=== PATIENT | female | born 1985 | race Caucasian/White ===

== ENCOUNTER 2017-08-06 08:32 | Inpatient (IN) | payer OTHER ==
[2017-08-06 09:12] LABS: AMNISURE (ROM) POSITIVE (NEGATIVE)
[2017-08-06 09:42] LABS: ABSOLUTE BASOPHILS # (AUTO) 0.1 10^3/uL (0.0-0.2); ABSOLUTE EOSINOPHILS # (AUTO) 0.1 10^3/uL (0.0-0.6); ABSOLUTE LYMPHOCYTES (AUTO) 1.8 10^3/uL (0.5-4.7); ABSOLUTE NEUT (AUTO) 8.6 10^3/uL (1.7-8.2); BASOPHILS % (AUTO) 0.5 % (0-2); EOSINOPHILS % (AUTO) 0.5 % (0-6); HEMATOCRIT 35.2 % (36.0-47.0); HEMOGLOBIN 12.2 g/dL (12.0-15.5); HGB HCT DIFFERENCE 1.4; LYMPHOCYTES % (AUTO) 15.9 % (13-45); MEAN CORPUSCULAR HEMOGLOBIN 30.3 pg (27.0-33.4); MEAN CORPUSCULAR HGB CONC 34.7 g/dL (32.0-36.0); MEAN CORPUSCULAR VOLUME 87 fl (80-97); RED BLOOD COUNT 4.03 10^6/uL (3.72-5.28); RED CELL DISTRIBUTION WIDTH 14.3 % (11.5-14.0); SEGMENTED NEUTROPHILS % (AUTO) 74.1 % (42-78); WHITE BLOOD COUNT 11.6 10^3/uL (4.0-10.5)
--- NOTE | 2017-08-06 10:16 | Non Stress Test Report ---
Non Stress Test Datetime Report Generated by CPN: 08/06/2017 10:16 DEMOGRAPHIC EGA NST: 40.1 INDICATION Indication for Study: Ordered by Provider MONITORING Monitor Explained: Monitor Explained; Test Explained; Patient Verbalized Understanding Time on Monitor: 08/06/2017 09:02 Time off Monitor: 08/06/2017 09:39 NST Duration: 37 NST INTERVENTIONS NST Interventions: PO Hydration; Reposition Patient Physician Notified NST: Dr. Cisneros BABY A: [id number] Movement : Present Contraction Frequency : 3-4 FHR Baseline : 135 Accelerations : 15X15 Decelerations : None Variability : Moderate 6-25bpm NST Review: Meets Criteria for Reactive NST NST Review and Verified By : Georgette Hsieh RN NST Results: Reactive NST REPORT Report Trigger: Send Report
[2017-08-06 10:32] LABS: APPEARANCE,URINE CLEAR; BILIRUBIN,URINE NEGATIVE (NEGATIVE); GLUCOSE, URINE NEGATIVE (NEGATIVE); KETONES,URINE TRACE mg/dL (NEGATIVE); LEUKOCYTE ESTERASE,URINE NEGATIVE (NEGATIVE); NITRITE,URINE NEGATIVE (NEGATIVE); PROTEIN,URINE NEGATIVE (NEGATIVE); URINE SPECIFIC GRAVITY 1.004; UROBILINOGEN,URINE NEGATIVE mg/dL (<2.0)
[2017-08-06 11:02] LABS: URINE BARBITURATES SCREEN NEGATIVE; URINE METHADONE SCREEN NEGATIVE; URINE OPIATES LOW NEGATIVE; URINE PHENCYCLIDINE SCREEN NEGATIVE
[2017-08-06] MEDS ORDERED: MISOPROSTOL 0.2 MG TABLET ONE (12:20)
[2017-08-06] MEDS ORDERED: LIDOCAINE 1% INJ-PF (10 MG/ML) 30 ML SDV ONE (12:20)
[2017-08-06] MEDS ORDERED: OXYTOCIN/NORMAL SALINE 20 UNIT/1,000 ML RTUINJ ONE (12:20)
[2017-08-06] MEDS ORDERED: FENTANYL/BUPIVACAINE/NS/PF 200 MCG/100 ML RTUINJ EPI ONE (12:52)
[2017-08-06] MEDS ORDERED: BUPIVACAINE HCL 0.25 % INJ/PF (2.5 MG/1 ML) 30 ML VIAL ONE (12:52)
[2017-08-06] MEDS ORDERED: EPHEDRINE SULFATE INJ 50 MG/1 ML AMPULE ONE (12:52)
[2017-08-06] MEDS ORDERED: ONDANSETRON HCL INJ/PF 4 MG/2 ML SDV ONE (15:55)
[2017-08-06] MEDS ORDERED: GLYCERIN/WITCH HAZEL LEAF 1 EACH MED..PAD TP PRN (17:20)
[2017-08-06] MEDS ORDERED: PROMETHAZINE HCL 25 MG TABLET PO PRN (17:20)
[2017-08-06] MEDS ORDERED: BENZOCAINE/MENTHOL AEROSOL SPRAY 56 ML TOP PRN (17:20)
[2017-08-06] MEDS ORDERED: MAGNESIUM HYDROXIDE SUSP 30 ML UDCUP PO PRN (17:20)
[2017-08-06] MEDS ORDERED: OXYTOCIN/NORMAL SALINE 20 UNIT/1,000 ML RTUINJ IV PRN (17:20)
[2017-08-06] MEDS ORDERED: DIBUCAINE 1% OINTMENT 28 GM TP PRN (17:20)
[2017-08-06] MEDS ORDERED: PSEUDOEPHEDRINE HCL 30 MG TABLET PO PRN (17:20)
[2017-08-06] MEDS ORDERED: DIPHENHYDRAMINE HCL 25 MG CAPSULE PO PRN (17:20)
[2017-08-06] MEDS ORDERED: MEASLES,MUMPS&RUBELLA VACC/PF 0.5 ML VIAL SUBCUT PRN (17:20)
[2017-08-06] MEDS ORDERED: PROMETHAZINE HCL INJ 25 MG/1 ML VIAL IV PRN (17:20)
[2017-08-06] MEDS ORDERED: ZOLPIDEM TARTRATE 5 MG TABLET PO PRN (17:20)
[2017-08-06] MEDS ORDERED: PROMETHAZINE HCL 25 MG SUPP.RECT PR PRN (17:20)
[2017-08-06] MEDS ORDERED: ACETAMINOPHEN WITH CODEINE #3 TABLET PO PRN ×2 (17:20)
[2017-08-06] MEDS ORDERED: ACETAMINOPHEN 650 MG SUPP.RECT PR PRN (17:20)
[2017-08-06] MEDS ORDERED: DIPH/PERTUSS(ACELL)/TETANUS VAC/PF 0.5 ML SYR (>=10YO) IM PRN (17:20)
[2017-08-06] MEDS ORDERED: NA PHOS,M-B/NA PHOS,DI-BA (ADULT) 133 ML ENEMA PR PRN (17:20)
[2017-08-06] MEDS ORDERED: IBUPROFEN 800 MG TABLET ONE (17:40)
--- NOTE | 2017-08-06 18:28 | Delivery Summary ---
Del Sum A-C Datetime Report Generated by CPN: 08/06/2017 18:27 DELIVERY PERSONNEL DELIVERY PERSONNEL: [id number] Delivery Doctor:: Violeta Cisneros MD Labor and Delivery Nurse:: Ree Mendez RN Nursery Nurse:: Yesika Trujillo RN Weld Engineer/AGRICULTURAL LENDER: Kena Gillisaneda, ST MATERNAL INFORMATION Delivery Anesthesia: Epidural Medications After Delivery: Pitocin Bolus-Please Comment; Pitocin Drip 20 Units/1000ml NSS Estimated Blood Loss (ml): 250 Maternal Complications: None LABOR SUMMARY EDC: 08/05/2017 00:00 No. Babies in Womb: 1 Attempted: No Labor Anesthesia: Epidural LABOR INFORMATION Reason for Induction: Not Applicable Onset of Labor: 08/06/2017 05:30 Complete Dilatation: 08/06/2017 15:59 Oxytocin: N/A Group B Beta Strep: negative Antibiotics # of Doses: 0 Antibiotics Time of Last Dose: n/a Name of Antibiotic Given: n/a Steroids Given: None Reason Steroids Not Administered: Not Applicable MEMBRANES Membranes Rupture Method: Spontaneous Rupture of Membranes: 08/06/2017 05:30 Length of Rupture (hr): 11.32 Amniotic Fluid Color: Light Meconium Amniotic Fluid Amount: Moderate Amniotic Fluid Odor: Normal STAGES OF LABOR Stage 1 hr: 10 Stage 1 min: 29 Stage 2 hr: 0 Stage 2 min: 50 Stage 3 hr: 0 Stage 3 min: 1 Total Time in Labor hr: 11 Total Time in Labor min: 20 VAGINAL DELIVERY Episiotomy: None Laceration #1: Vaginal Laceration Extension #1: Second Degree Laceration Repair: Yes Laceration Repair Note: left labial majora repaired with 2-0 chromic in normal fashion Sponge Count Correct: Yes Sharps Count Correct: Yes BABY A INFORMATION Infant Delivery Date/Time: 08/06/2017 16:49 Method of Delivery: Vaginal Born in Route : No : N/A Forceps: N/A Vacuum Extraction: N/A Shoulder Dystocia : Yes SHOULDER DYSTOCIA BABY A Delivery of Head: 08/06/2017 16:48 Time Head to Delivery : 1.0 1st Intervention to Resolve: McRobert's Maneuver 2nd Intervention to Resolve: Suprapubic Pressure Verify NO Fundal Pressure: No Fundal Pressure Applied Shoulder Dystocia Comments: Head to baby was 45 seconds. Dewey and Suprapubic pressure were the only manuevers used before spontaneous delivery. PRESENTATION/POSITION BABY A Presentation: Cephalic Cephalic Presentation: Vertex Vertex Position: Left Occipital Anterior Breech Presentation: N/A PLACENTA INFORMATION BABY A Placenta Delivery Time : 08/06/2017 16:50 Placenta Method of Delivery: Spontaneous Placenta Status: Delivered SCORES BABY A Heart Rate 1 min: >100 bpm Resp Effort 1 min: Good Cry Reflex Irritability 1 min: Cough or Sneeze or Pulls Away Muscle Tone 1 min: Active Motion Color 1 min: Blue/Pale Resuscitation Effort 1 min: Tactile Stimulation SCORE 1 MIN: 8 Heart Rate 5 min: >100 bpm Resp Effort 5 min: Good Cry Reflex Irritability 5 min: Cough or Sneeze or Pulls Away Muscle Tone 5 min: Active Motion Color 5 min: Body [place], Extremities Blue Resuscitation Effort 5 min: Tactile Stimulation SCORE 5 MIN: 9 INFANT INFORMATION BABY A Gestational Age at Delivery: 40.1 Gestational Status: Full Term- 39- 40.6 Weeks Outcome : Liveborn Condition : Stable Sex: Female IDENTIFICATION BABY A Infant Verification Date/Time: 08/06/2017 16:59 ID Band Number: [id number] Mother's Name Verified: Yes RN Verifying Infant: B Baidy RN/ A Kwabena RN WEIGHT/LENGTH BABY A Birthweight (gm): 4030 Weight (lb): 8 Infant Weight (oz): 14 Infant Length (in): 20.25 Infant Length (cm): 51.44 CORD INFORMATION BABY A No. Cord Vessels: 3 Nuchal Cord : Around Neck x1, Loose Cord Blood Taken: Yes-For Storage (Mom's Blood type +) Suction: Mouth; Nose ASSESSMENT BABY A Complications: Meconium; Shoulder Dystocia Physical Findings at Delivery: Bruising Physical Findings- Other: Infant to [facility] @ 1740 accompanied by nursery nurse Infant Respirations: Grunting Skin to Skin: Yes Skin to Skin Time (min): 25 Critical Systems Technician/ALS Called : No Care By: Doreen Trujillo RN Transferred To: Remains with Mother BABY B INFORMATION : N/A SIGNATURES Signature: with User ID: [email or web address]
--- NOTE | 2017-08-06 20:19 | Admission Physical ---
Datetime Report Generated by CPN: 08/06/2017 20:18 CURRENT ADMISSION Chief Complaint: Uterine Contractions Indication for Induction: Not Applicable Indication for Induction: Term, Intrauterine ; Ruptured Membranes Admit Plan: Admit to Unit; Initiate Labor Augmentation Protocol ALLERGIES Medication Allergies: No Medication Allergies: Adhesive Bandage * (03/29/2016) Latex: No Latex Allergies OBSTETRICAL HISTORY EDC: 08/05/2017 00:00 : 4 Para: 1 Term: 1 : 0 SAB: 2 IAB: 0 Ectopic: 0 Livin Cesareans: 0 VBACs: 0 Multiple Births: 0 Gestational Diabetes: Yes Rh Sensitization: No Incompetent Cervix: No YEMI: No Infertility: No ART Treatment: No Uterine Anomaly: No IUGR: No Hx Previous C/S: No Macrosomia: No Hx Loss/Stillborn: No PIH: No Hx : No Placenta Previa/Abruption: No Depression/PP Depression: No PTL/PROM: No Post Hemorrhage: No Current Procedures: Ultrasound Obstetrical History Comments: G1- IOL @ 40.1 baby boy GHTN and GDM G2- SAB @ 7 wks G3- SAB D_C G4- Current SEE RECORDS Alcohol: No Marijuana : No Cocaine: No Other Illicit Drugs: No Cigarettes: Never Smoker. [id number] MEDICAL HISTORY Diabetes: Yes Diabetes Type: Gestational Diabetes Blood Transfusion: Yes Pulmonary Disease (Asthma, TB): No Breast Disease: No Hypertension: Yes Outside Sales Executive Surgery: No Heart Disease: No Hosp/Surgery: No Autoimmune Disorder: No Anesthetic Complications: No Kidney Disease: No Abnormal Pap Smear: No Neuro/Epilepsy: No Psychiatric Disorders: No Other Medical Diseases: No Hepatitis/Liver Disease: No Significant Family History: No Varicosities/Phlebitis: No Trauma/Violence : No Thyroid Dysfunction: No Medical History Comments: Hx: GDM, GHTN first Hx: blood transfusion when she was born INFECTIOUS HISTORY Gonorrhea: No Genital Herpes: No Chlamydia: No Tuberculosis: No Syphilis: No Hepatitis: No HIV/AIDS Exposure: No Rash or Viral Illness: No HPV: No PHYSICAL EXAM General: Normal HEENT: Normal Neurologic: Normal Thyroid: Normal Heart: Normal Lungs: Normal Breast: Normal Back: Normal Abdomen: Normal Genitourinary Exam: Normal Extremities: Normal DTRs: Normal Pelvic Type: Adequate Vital Signs: Reviewed VAGINAL EXAM Dilatation: 2 Effacement: 70 Station: -1 MEMBRANES Pooling: Positive Membranes: Ruptured Amniotic Fluid Color: Clear FETUS A EGA: 40.1 Monitoring: External US FHR- Baseline: 130 Variability: Moderate 6-25bpm Accelerations: 10X10 Decelerations: None FHR Category: Category I Estimated Weight (gm): 3500 Presentation: Vertex PLANS FOR LABOR AND DELIVERY Labor and Delivery: None Pain Management: Natural Feeding Preference: Breast Benefit of Breast Feed Discussed: Yes Circumcision: N/A INFORMED CONSENT Signature: with User ID: [email or web address]
[2017-08-06] MEDS: FAMOTIDINE 20 MG TABLET PO SCH (21:47)
[2017-08-06] MEDS: ACETAMINOPHEN 325 MG TABLET PO PRN (21:48)
[2017-08-06] MEDS ORDERED: IBUPROFEN 800 MG TABLET PO SCH (22:00)
[2017-08-06] MEDS: FERROUS SULFATE 325 MG TABLET PO SCH (22:36)
[2017-08-06] MEDS: DOCUSATE SODIUM 100 MG CAPSULE PO SCH (22:36)
[2017-08-07] MEDS: IBUPROFEN 800 MG TABLET PO SCH ×3 (01:27→17:12)
[2017-08-07] MEDS: ACETAMINOPHEN 325 MG TABLET PO PRN ×2 (06:28→14:24)
[2017-08-07 07:42] LABS: HEMOGLOBIN 10.9 g/dL (12.0-15.5); HGB HCT DIFFERENCE 2.7; MEAN CORPUSCULAR HEMOGLOBIN 31.9 pg (27.0-33.4); MEAN CORPUSCULAR HGB CONC 36.4 g/dL (32.0-36.0); MEAN CORPUSCULAR VOLUME 88 fl (80-97); RED BLOOD COUNT 3.42 10^6/uL (3.72-5.28); RED CELL DISTRIBUTION WIDTH 14.4 % (11.5-14.0); WHITE BLOOD COUNT 14.3 10^3/uL (4.0-10.5)
--- NOTE | 2017-08-07 10:06 | PDOC PROGRESS REPORT ---
Subjective-OB Subjective: Post Delivery Day: 32 year old. Denies any needs at this time Doing well, no c/o, voiding, , ambulating Physical Exam (OB) Vital Signs: Temp Pulse Resp BP Pulse Ox 98.0 F 83 18 107/66 100 08/07/17 08:34 08/07/17 08:34 08/07/17 08:34 08/07/17 08:34 08/07/17 08:34 Intake & Output 08/06/17 08/07/17 08/08/17 06:59 06:59 06:59 Weight 94.65 kg - PIH/Pre-Eclampsia Clonus: Negative - Lochia Lochia Amount: Scant < 10 ml Lochia Color: Rubra/Red - Abdomen Description: Soft, Round Hernia Present: No Fundal Description: Firm, Midline Fundal Height: u/u - u/2 Objective-Diagnostic Laboratory: 08/07/17 07:12 08/06/17 08/06/17 08/07/17 08:37 09:25 07:12 WBC 14.3 H RBC 3.42 L Hgb 10.9 L Hct 30.0 L MCV 88 MCH 31.9 MCHC 36.4 H RDW 14.4 H Plt Count 142 L Urine Color STRAW Urine Appearance CLEAR Urine pH 5.0 Ur Specific [place] 1.004 Urine Protein NEGATIVE Urine Glucose (UA) NEGATIVE Urine Ketones TRACE H Urine Blood MODERATE H Urine Nitrite NEGATIVE Ur Leukocyte Esterase NEGATIVE Blood Type A POSITIVE Antibody Screen NEGATIVE Assessment and Plan(PN) - Assessment and Plan (1) Normal vaginal delivery Is this a current diagnosis for this admission?: Yes (2) Anemia Qualifiers: Anemia type: iron deficiency Is this a current diagnosis for this admission?: Yes - Time Spent with Patient Time with patient: Less than 15 minutes Medications reviewed and adjusted accordingly: Yes - Disposition Anticipated Discharge: Home Within: within 48 hours
[2017-08-07] MEDS: SENNOSIDES/DOCUSATE 8.6-50 MG 1 EACH TABLET PO SCH (10:13)
[2017-08-07] MEDS: PRENATAL VITAMIN W DHA CAPSULE PO SCH (10:13)
[2017-08-07] MEDS: DOCUSATE SODIUM 100 MG CAPSULE PO SCH ×2 (10:13→17:13)
[2017-08-07] MEDS: FAMOTIDINE 20 MG TABLET PO SCH ×2 (10:13→21:08)
[2017-08-07] MEDS: FERROUS SULFATE 325 MG TABLET PO SCH ×2 (10:14→17:13)
[2017-08-08] MEDS: IBUPROFEN 800 MG TABLET PO SCH ×2 (02:06→09:24)
[2017-08-08] MEDS: ACETAMINOPHEN 325 MG TABLET PO PRN (05:58)
[2017-08-08 09:07] VITALS: BP 115/77
[2017-08-08] MEDS: FERROUS SULFATE 325 MG TABLET PO SCH (09:24)
[2017-08-08] MEDS: DOCUSATE SODIUM 100 MG CAPSULE PO SCH (09:24)
[2017-08-08] MEDS: SENNOSIDES/DOCUSATE 8.6-50 MG 1 EACH TABLET PO SCH (09:24)
[2017-08-08] MEDS: PRENATAL VITAMIN W DHA CAPSULE PO SCH (09:24)
[2017-08-08] MEDS: FAMOTIDINE 20 MG TABLET PO SCH (09:24)
--- NOTE | 2017-08-08 10:10 | PDOC DISCHARGE SUMMARY ---
Final Diagnosis Discharge Date: 08/08/17 - Final Diagnosis (1) Acute blood loss anemia Is this a current diagnosis for this admission?: Yes (2) Shoulder dystocia, delivered Is this a current diagnosis for this admission?: Yes (3) Normal vaginal delivery Is this a current diagnosis for this admission?: Yes Discharge Data - Discharge Medication Home Medications: Vits96/Iron Fum/Folic [ Tablet] 1 tab PO DAILY 12/13/13 Docusate Sodium [Colace 100 mg Capsule] 100 mg PO BID #60 capsule 08/08/17 Ferrous Sulfate [Feosol 325 mg Tablet] 325 mg PO BID #60 tablet 08/08/17 Ibuprofen [Motrin 800 mg Tablet] 800 mg PO Q8HP PRN #30 tablet 08/08/17 Reason(s) for Admission: Onset of Labor Procedures: Ultrasound Intrapartum Procedure(s): Spontaneous Vaginal Delivery Complication(s): Laceration-Vaginal, Laceration-Labial Laceration-Degree: 2nd - Diagnosis Test Laboratory: Temp Pulse Resp BP Pulse Ox 98.2 F 69 16 115/77 100 08/08/17 07:57 08/08/17 07:57 08/08/17 07:57 08/08/17 07:57 08/08/17 07:57 08/06/17 08/06/17 08/07/17 08:37 09:25 07:12 RBC 4.03 3.42 L Hgb 12.2 10.9 L Hct 35.2 L 30.0 L Urine Opiates Screen NEGATIVE - Discharge information/Instructions Discharge Activity: Activity As Tolerated, Balance Activity w/Rest, No Lifting Over 10 Pounds, No Lifting/Push/Pulling, Pelvic Rest, Slowly Increase Activity, No tub bath Discharge Diet: As Tolerated, Regular Disposition: HOME, SELF-CARE Follow up with: [facility] in: 4, Weeks
== END 2017-08-08 12:18 | disposition home or self-care (01) | DRG 775 ==
LOC: LC 08:32 → LR 09:21 → 2S 19:35
PROVIDERS: ADMIT Obstetrics & Gynecology; ATTEND Obstetrics & Gynecology
PROC: 10E0XZZ Delivery of Products of Conception, External Approach (ICD-10-PCS; principal; 2017-08-06)
PROC: 0KQM0ZZ Repair Perineum Muscle, Open Approach (ICD-10-PCS; 2017-08-06)
DX: O24.429 Gestational diabetes mellitus in childbirth, unspecified control (principal); O99.02 Anemia complicating childbirth; D50.9 Iron deficiency anemia, unspecified; O70.1 Second degree perineal laceration during delivery; O66.0 Obstructed labor due to shoulder dystocia; O69.81X0 Labor and delivery complicated by cord around neck, without compression, not applicable or unspecified; O77.0 Labor and delivery complicated by meconium in amniotic fluid; Z3A.40 40 weeks gestation of pregnancy; Z37.0 Single live birth
CPT/HCPCS: 36415; 59025; 80307; 81005; 84112; 85025; 85027; 86592; 86850; 86900; 86901; 94760; J2405; J2590; J3490

== ENCOUNTER 2019-08-31 06:19 | Day surgery (SDC) | payer OTHER ==
[2019-08-24 09:40] LABS: HEMATOCRIT 38.6 % (36.0-47.0); HEMOGLOBIN 13.4 g/dL (12.0-15.5); MEAN CORPUSCULAR HEMOGLOBIN 29.1 pg (27.0-33.4); MEAN CORPUSCULAR HGB CONC 34.8 g/dL (32.0-36.0); MEAN CORPUSCULAR VOLUME 84 fl (80-97); PLATELET COUNT 217 10^3/uL (150-450); RED BLOOD COUNT 4.61 10^6/uL (3.72-5.28); RED CELL DISTRIBUTION WIDTH 13.8 % (11.5-14.0); WHITE BLOOD COUNT 7.5 10^3/uL (4.0-10.5)
[2019-08-24 09:43] LABS: APPEARANCE,URINE SLIGHTLY-CLOUDY; BILIRUBIN,URINE NEGATIVE (NEGATIVE); COLOR,URINE YELLOW; GLUCOSE, URINE NEGATIVE (NEGATIVE); KETONES,URINE NEGATIVE (NEGATIVE); LEUKOCYTE ESTERASE,URINE NEGATIVE (NEGATIVE); NITRITE,URINE NEGATIVE (NEGATIVE); PROTEIN,URINE NEGATIVE (NEGATIVE); URINE SPECIFIC GRAVITY 1.017; UROBILINOGEN,URINE NEGATIVE mg/dL (<2.0)
[2019-08-24 10:12] LABS: ANION GAP 9 (5-19); BLOOD UREA NITROGEN 10 mg/dL (7-20); CALCIUM 9.5 mg/dL (8.4-10.2); CARBON DIOXIDE 29 mmol/L (22-30); CHLORIDE 101 mmol/L (98-107); GLUCOSE 77 mg/dL (75-110); POTASSIUM 3.9 mmol/L (3.6-5.0)
[~2019-08-31 06:19] MED LIST: CEFAZOLIN SODIUM 1 GM in DEXTROSE 5%-WATER 50 ML IV PRN; LACTATED RINGERS 1000 ML IV PRN; LIDOCAINE 0.5% INJ-PF (5 MG/ML) 50 ML SDV SUBCUT PRN; SCOPOLAMINE HYDROBROMIDE 1.5 MG PATCH.TD72 ONE; SCOPOLAMINE HYDROBROMIDE 1.5 MG PATCH.TD72 TD PRN
[2019-08-31] MEDS ORDERED: DEXAMETHASONE SOD PHOSPHATE INJ 4 MG/1 ML VIAL ONE (07:35)
[2019-08-31] MEDS ORDERED: FAMOTIDINE INJ/PF 20 MG/2 ML SDV IV ONE (07:36)
[2019-08-31] MEDS ORDERED: KETOROLAC TROMETHAMINE 60 MG/2 ML SDV ONE (07:58)
[2019-08-31] MEDS ORDERED: MIDAZOLAM 2 MG/2 ML INJ ONE (07:58)
[2019-08-31] MEDS ORDERED: FENTANYL CITRATE INJ/PF 100 MCG/2 ML AMPUL ONE (07:58)
[2019-08-31] MEDS ORDERED: PROPOFOL INJ 200 MG/20 ML VIAL IV ONE (07:59)
[2019-08-31] MEDS ORDERED: RINGERS SOLUTION,LACTATED 500 ML IV ONE (08:00)
[2019-08-31] MEDS ORDERED: FENTANYL CITRATE INJ/PF 100 MCG/2 ML AMPUL IV PRN ×3 (08:31)
[2019-08-31] MEDS ORDERED: PROMETHAZINE HCL INJ 25 MG/1 ML VIAL IV PRN ×2 (08:31)
[2019-08-31] MEDS ORDERED: OXYCODONE-ACETAMINOPHEN 5-325 MG TABLET PO PRN ×3 (08:31→08:58)
[2019-08-31] MEDS ORDERED: DIPHENHYDRAMINE HCL 50 MG/ML VIAL IV PRN (08:31)
[2019-08-31] MEDS ORDERED: MORPHINE SULFATE 10 MG/ML INJ IV PRN (08:31)
[2019-08-31] MEDS ORDERED: ONDANSETRON HCL INJ/PF 4 MG/2 ML SDV IV PRN (08:31)
[2019-08-31] MEDS ORDERED: MEPERIDINE HCL/PF INJ 25 MG/1 ML DISP.SYRIN IV PRN (08:31)
[2019-08-31] MEDS ORDERED: LIDOCAINE 1% INJ-PF (10 MG/ML) 30 ML SDV ONE (08:46)
[2019-08-31] MEDS ORDERED: MORPHINE SULFATE 10 MG/ML INJ INJ PRN (08:59)
[2019-08-31] MEDS ORDERED: PROMETHAZINE HCL INJ 25 MG/1 ML VIAL IM PRN (09:00)
--- NOTE | 2019-08-31 09:01 | Operative Report ---
Operative Report DATE OF SURGERY: 08/31/19 PREOPERATIVE DIAGNOSIS: Menorrhagia POSTOPERATIVE DIAGNOSIS: Menorrhagia OPERATION: Hysteroscopy, NovaSure ablation SURGEON: DHARMESH SOUTH ANESTHESIA: LMAC TISSUE REMOVED OR ALTERED: None COMPLICATIONS: None ESTIMATED BLOOD LOSS: 5 mL's INTRAOPERATIVE FINDINGS: Normal endometrial cavity. 1 mm of the tip of the right essure implant was noted, it was well epithelialized. The left ostia was noted and no implant was appreciated. No endometrial polyps or fibroids were noted PROCEDURE: INDICATIONS FOR PROCEDURE: The patient had abnormal uterine bleeding for several months unresponsive to usual outpatient management. The usual risks of bleeding, infection, anesthesia, and damage to organs and tissues had been discussed with the patient and understood. PROCEDURE: The patient was taken to the operating room, placed in a modified lithotomy position. After adequate anesthesia was ascertained, we prepped and draped in the usual manner for a hysteroscopy . Paracervical block done. The cervix readily admitted dilators. A single-tooth tenaculum was placed on the anterior lip of the cervix after anesthesia was instilled. Hysteroscopy ensued. A endometrial cavity was noted and tip of right essure was appreciated. It was elected to proceed to novasure ablation of the entire endometrial cavity after integrity confirmed w CO2. Good burn appreciated throughout. Bleeding was nil at the completion of the procedure
[2019-08-31] MEDS ORDERED: IBUPROFEN 800 MG TABLET PO SCH (10:00)
[2019-08-31 10:51] VITALS: BP 115/80
== END 2019-08-31 10:10 | disposition home or self-care (01) ==
LOC: OROUT 06:19
PROVIDERS: ATTEND Specialist
DX: N92.0 Excessive and frequent menstruation with regular cycle (principal)
CPT/HCPCS: 86900; 86901; 36415 ×2; 86850; 85027; 81025; 80048; 81001; 00952; 58563; J2250; J0690; J1100; J1885; J3010; J3490; J7060; J2704; S0028; 952

== ENCOUNTER 2019-10-05 20:04 | Emergency (ER) | payer OTHER ==
[2019-10-05] MEDS ORDERED: IBUPROFEN 800 MG TABLET PO ONE (21:09)
[2019-10-05] MEDS ORDERED: BUPIVACAINE HCL 0.5 % INJ/PF 30 ML SDV INJ ONE (21:29)
--- NOTE | 2019-10-05 21:31 | ER Document Report ---
HPI - HPI Patient complains to provider of: Toe injury Time Seen by Provider: 10/05/19 21:07 Onset: This evening Onset/Duration: Sudden Quality of pain: Achy Pain Level: 1 Context: Patient states that she accidentally kicked a table injuring her fifth toe. Patient with positive deformity to the toe. Patient denies any other injury. Associated Symptoms: Other - Left fifth toe injury Exacerbated by: Movement, Walking Relieved by: Denies Similar symptoms previously: No Recently seen / treated by doctor: No - ROS ROS below otherwise negative: Yes Systems Reviewed and Negative: Yes All other systems reviewed and negative - GASTROINTESTINAL Gastrointestinal: DENIES: Nausea - MUSCULOSKELETAL Musculoskeletal: REPORTS: Extremity pain - DERM Skin Color: Normal Skin Problems: None Past Medical History - General Information source: Patient - Social History Smoking Status: Never Smoker Frequency of alcohol use: Occasional Drug Abuse: None Lives with: Family Family History: Reviewed & Not Pertinent Patient has suicidal ideation: No Patient has homicidal ideation: No - Past Medical History Cardiac Medical History: Reports: Hx Hypertension - Musculoskeletal Medical History: Denies Hx Arthritis Past Surgical History: Reports: Hx Gynecologic Surgery - Uterine ablation - Immunizations Hx Diphtheria, Pertussis, Tetanus Vaccination: Yes - 09/2013 Vertical Provider Document - CONSTITUTIONAL Agree With Documented VS: Yes Exam Limitations: No Limitations General Appearance: WD/WN, No Apparent Distress - INFECTION CONTROL TRAVEL OUTSIDE OF THE [place] IN LAST 30 DAYS: No - HEENT HEENT: Atraumatic, Normocephalic - NECK Neck: Normal Inspection - RESPIRATORY Respiratory: No Respiratory Distress - CARDIOVASCULAR Pulses: Normal: Dorsalis pedis - MUSCULOSKELETAL/EXTREMETIES Musculoskeletal/Extremeties: MAEW, Tender - Left fifth toe tenderness with positive deformity, Edema - NEURO Level of Consciousness: Awake, Alert, Appropriate Motor/Sensory: No Motor Deficit - DERM Integumentary: Warm, Dry Course - Re-evaluation Re-evalutation: 10/05/19 22:20 After toe was anesthetized with digital block using 0.5% bupivacaine, toe was kaur taped to the fourth toe and patient was placed into a postop shoe. Patient encouraged to follow-up with orthopedics for further evaluation. Patient declines any pain medications at this time. - Vital Signs Vital signs: Temp Pulse Resp BP Pulse Ox 98.5 F 116 H 20 145/84 H 100 10/05/19 20:10 10/05/19 20:10 10/05/19 20:10 10/05/19 20:10 10/05/19 20:10 - Diagnostic Test Radiology reviewed: Pending, Image reviewed Procedures - Immobilization Left Foot Pre-Proc Neuro Vasc Exam: Normal Immobilizer type: Post-op shoe Post-Proc Neuro Vasc Exam: Normal Alignment checked and good: Yes Discharge - Discharge Clinical Impression: Fracture of fifth toe, left, closed Qualifiers: Encounter type: initial encounter Qualified Code(s): S92.502A - Displaced unspecified fracture of left lesser toe(s), initial encounter for closed fracture Condition: Stable Disposition: HOME, SELF-CARE Instructions: Kaur Taping (toes) ([facility]), Post-Op Shoe ([facility]), Fractured Toe ([facility]) Additional Instructions: Return immediately for any new or worsening symptoms Followup with your primary care provider, call tomorrow to make a followup appointment Follow-up with orthopedics for further evaluation, call Tuesday for an appointment Prescriptions: Naproxen [Naprosyn 250 Nmg Tablet] 1 tab PO BID #14 tablet Referrals: DHARMESH SOUTH MD [Primary Care Provider] - Follow up as needed [facility] [Provider Group] - Follow up as needed [facility] [Provider Group] - Follow up as needed
--- NOTE | 2019-10-05 21:57 | RADIOLOGY REPORT (SQ) ---
EXAM DESCRIPTION: Three views of the left foot CLINICAL HISTORY: 34 years Female, kicked table, L 5th toe injury COMPARISON: None. FINDINGS: Bone mineralization is normal. Mildly comminuted fracture of the fifth proximal phalanx is identified. There is mild apex medial angulation. No extension into the DIP joint. The fracture may extend into the MTP joint. Minimal spurring of the calcaneus at the insertion of the plantar fascia. IMPRESSION: Mildly comminuted fracture of the fifth proximal phalanx with apex medial angulation.
[2019-10-05 23:09] VITALS: BP 126/74
== END 2019-10-05 23:06 | disposition home or self-care (01) ==
LOC: ER 20:04
DX: S92.502A Displaced unspecified fracture of left lesser toe(s), initial encounter for closed fracture (principal); W22.03XA Walked into furniture, initial encounter
CPT/HCPCS: 99283